=== PATIENT | female | born 1930 | race Caucasian/White ===

== ENCOUNTER 2016-08-14 13:45 | Observation (INO) | payer MEDICARE ==
[~2016-08-14 13:45] MED LIST: ALEVE220 M2 PO; ASPIRIN EC81 MG PO; CENTRUM SILVER1 EAC3 PO; FISH OIL 11000 MG/CA PO; IRON PO; VALIUM5 M1 PO; VICODIN 5/500 T1 TAB PO
[2016-08-14] MEDS ORDERED: BLOOD PRESSURE MED (13:50)
[2016-08-14] MEDS ORDERED: XANAX0.25 M1 PO (14:51)
[2016-08-14] MEDS ORDERED: TOPROL XL100 M1 PO (14:51)
[2016-08-14] MEDS ORDERED: NORCO 5-325 TA1 EACH PO (16:16)
[2016-08-14 17:10] LABS: BASO % 0.3 % (0-2); EOS % 0.5 % (0-7); EOSINOPHIL ABSOLUTE COUNT 0.1 tho/cmm (0.0-0.7); HCT-HEMATOCRIT 42.9 % (34.0-49.0); HGB-HEMOGLOBIN 14.7 gm/dl (12.0-15.5); IMMATURE GRANULOCYTES ABSOLUTE 0.04 tho/cmm (0-0.03); IMMATURE GRANULOCYTES PERCENT 0.3 % (0-0.3); LYMPH % 7.1 % (20-45); LYMPH ABSOLUTE COUNT 1.1 tho/cmm (0.8-4.5); MCH (MEAN CORPUSCULAR HGB) 30.7 pg (28.0-32.0); MCHC MEAN CORPUSCULAR HGB CONC 34.3 % (32.0-36.0); MCV (MEAN CELL VOLUME) 89.6 fl (82.0-96.0); MEAN PLATELET VOLUME 9.7 cmc (9.4-12.4); MONOCYTE ABSOLUTE COUNT 0.8 tho/cmm (0.0-1.2); NEUTROPHIL ABSOLUTE COUNT 13.6 tho/cmm (1.6-8.0); NEUTROPHIL-AUTOMATED 13.6 tho/cmm (1.6-8.0); NEUTROPHILS % 86.8 % (40-80); PLATELET COUNT 238 tho/cmm (150-450); RED BLOOD COUNT 4.79 mil/cmm (4.00-5.20); RED CELL DISTRIBUTION WIDTH 12.4 % (12.4-16.4); WHITE BLOOD COUNT 15.7 tho/cmm (4.0-10.0)
[2016-08-14 17:22] LABS: ANION GAP 17 mmol/L (0-20); BLOOD UREA NITROGEN 6 mg/dl (6-24); CARBON DIOXIDE-VENOUS 23 mmol/L (22-32); CHLORIDE 101 mmol/l (96-110); CREATININE 0.95 mg/dl (0.50-1.10); GLUCOSE 105 mg/dL (70-110); SODIUM 136 mmol/L (135-145); eGFR VALUE FOR BLACK 63 mL/Min
[2016-08-14 17:28] LABS: POTASSIUM 4.8 mmol/L (3.7-5.1)
[2016-08-15 05:56] LABS: HCT-HEMATOCRIT 37.4 % (34.0-49.0); HGB-HEMOGLOBIN 12.6 gm/dl (12.0-15.5); IMMATURE GRANULOCYTES ABSOLUTE 0.01 tho/cmm (0-0.03); IMMATURE GRANULOCYTES PERCENT 0.1 % (0-0.3); LYMPH % 5.8 % (20-45); LYMPH ABSOLUTE COUNT 0.6 tho/cmm (0.8-4.5); MCH (MEAN CORPUSCULAR HGB) 30.2 pg (28.0-32.0); MCHC MEAN CORPUSCULAR HGB CONC 33.7 % (32.0-36.0); MCV (MEAN CELL VOLUME) 89.7 fl (82.0-96.0); MEAN PLATELET VOLUME 9.5 cmc (9.4-12.4); MONO % 1.5 % (0-12); MONOCYTE ABSOLUTE COUNT 0.2 tho/cmm (0.0-1.2); NEUTROPHIL ABSOLUTE COUNT 9.2 tho/cmm (1.6-8.0); NEUTROPHIL-AUTOMATED 9.2 tho/cmm (1.6-8.0); NEUTROPHILS % 92.6 % (40-80); PLATELET COUNT 210 tho/cmm (150-450); RED BLOOD COUNT 4.17 mil/cmm (4.00-5.20); RED CELL DISTRIBUTION WIDTH 12.4 % (12.4-16.4); WHITE BLOOD COUNT 9.9 tho/cmm (4.0-10.0)
[2016-08-15 06:20] LABS: BLOOD UREA NITROGEN 9 mg/dl (6-24); CALCIUM 8.6 mg/dl (8.5-10.5); CARBON DIOXIDE-VENOUS 25 mmol/L (22-32); CHLORIDE 101 mmol/l (96-110); CREATININE 1.06 mg/dl (0.50-1.10); SODIUM 136 mmol/L (135-145); eGFR VALUE FOR BLACK 55 mL/Min
[2016-08-15 06:24] LABS: ANION GAP 14 mmol/L (0-20); GLUCOSE 166 mg/dL (70-110); POTASSIUM 3.9 mmol/L (3.7-5.1)
[2016-08-15] MEDS ORDERED: ULTRAM50 M1 PO (11:35)
[2016-08-15] MEDS ORDERED: TYLENOL325 M2 PO (11:36)
== END 2016-08-15 12:20 ==
LOC: EDMED 13:45 → EMR2 18:46 → ORE 21:32 → PACU 22:30 → CAR1 08-15 00:07
PROVIDERS: Emergency Medicine; ADMIT Orthopaedic Surgery Sports Medicine
PROC: 0PSL04Z Reposition Left Ulna with Internal Fixation Device, Open Approach (ICD-10-PCS; principal; 2016-08-14)
DX: S52.022A Displaced fracture of olecranon process without intraarticular extension of left ulna, initial encounter for closed fracture (principal); E78.5 Hyperlipidemia, unspecified; I10 Essential (primary) hypertension; Z88.8 Allergy status to other drugs, medicaments and biological substances; Z79.899 Other long term (current) drug therapy; Z90.49 Acquired absence of other specified parts of digestive tract; Z98.890 Other specified postprocedural states; Z90.710 Acquired absence of both cervix and uterus; D72.829 Elevated white blood cell count, unspecified; Z86.73 Personal history of transient ischemic attack (TIA), and cerebral infarction without residual deficits; W11.XXXA Fall on and from ladder, initial encounter
CPT/HCPCS: G8978-GP-CH; G8979-GP-CH; G8980-GP-CH; J0690; J1170; J2405

== ENCOUNTER 2016-08-18 23:41 | Emergency (ER) | payer MEDICARE ==
[~2016-08-18 23:41] MED LIST changes: +BLOOD PRESSURE MED; +NORCO 5-325 TA1 EACH PO; +TOPROL XL100 M1 PO; +TYLENOL325 M2 PO; +ULTRAM50 M1 PO; +XANAX0.25 M1 PO
== END 2016-08-19 00:42 ==
LOC: EDMED 23:41
DX: S42.402D Unspecified fracture of lower end of left humerus, subsequent encounter for fracture with routine healing (principal); I10 Essential (primary) hypertension; X58.XXXD Exposure to other specified factors, subsequent encounter; Z98.890 Other specified postprocedural states; Z79.82 Long term (current) use of aspirin; Z79.899 Other long term (current) drug therapy